=== PATIENT | male | born 1985 | race Caucasian/White ===

== ENCOUNTER 2022-03-02 17:04 | Emergency (ER) | payer OTHER, SELFPAY ==
[2022-03-02 17:12] VITALS: BP 115/80; BP 130/60; PULSE 59; RESP 18; TEMP 37; O2SAT 98; BMI 20.9
--- NOTE | 2022-03-02 17:22 | ED.GENADULT ---
HPI - General Adult General Chief complaint: ETOH/Substance Use Stated complaint: Substance Use Time Seen by Provider: 03/02/22 17:08 Source: patient and EMS History of Present Illness HPI narrative: Patient with history of opioid use disorder presents after being found unresponsive outside a convenience store. He woke on EMS arrival and did not require Narcan or other interventions. He has been awake for EMS but lethargic and nodding off intermittently. He responds to verbal stimuli so far. Initially his temperature reading was 94, but is 97 by arrival. Patient denies any complaints at this time. He reports recently getting out of care home and starting Subutex. His last Subutex was 3 days ago. He has used opioids since then. He is due to go back tomorrow to the [facility] where the Subutex is being prescribed for follow-up. He denies any recent medical issues. No fevers or chills or cough or shortness of breath. He states he was in care home for 6 months and was on Subutex throughout. Related Data Allergies Allergy/AdvReac Type Severity Reaction Status Date / Time No Known Allergies Allergy Verified 03/02/22 17:17 Review of Systems Constitutional: Comments: No fevers or chills Cardiovascular: Comments: No chest pain Respiratory: Comments: No shortness of breath or cough Gastrointestinal: Comments: Abdominal pain. No nausea vomiting diarrhea or constipation Musculoskeletal: Comments: No injuries Integumentary/Breasts: Comments: No rash Neurologic: Comments: No focal weakness Psychiatric: Comments: No depression or suicidal or homicidal ideation PMFSH Social History Social History Advance Directives: No Advance Directives Information Provided: No Physical Exam ED Vital Signs: Vital Signs - 24 hr 03/02/22 17:12 03/02/22 17:27 Temperature 98.6 F 97.4 F Pulse Rate 59 60 Respiratory Rate 18 14 Blood Pressure 130/60 123/78 Pulse Oximetry 98 98 Oxygen Delivery Method Room Air Room Air BMI result Body Mass Index 20.9 HENRI Other: Normocephalic atraumatic Eyes Other: 3 mm. Equal round reactive to light Resp Other: Clear and equal bilaterally. No respiratory distress. Cardio Other: Regular rate and rhythm without murmurs rubs or gallops GI Other: Soft nontender nondistended Skin Other: Warm pink and dry Neuro Other: No focal weakness Course Course Course Narrative: Patient states he has no oxygen at home. He states that this caused a rash in the past but would use it if he overdoses. He states that he does not need a new prescription at this time 17:58. Patient is awake alert and ambulating without difficulty. He is stable for discharge home. He is calling his sister for a ride Medical Decision Making Medical Decision Making MDM Narrative: Patient with opioid use disorder. Tonight with opioid ingestion without overdose requiring naloxone. At high risk of overdose. Declining substance use disorder evaluation and this time, but has good follow-up with primary care and the ability to restart his Subutex tomorrow. Will monitor until mental status is awake and alert. There is no evidence of acute helpful cause of his mental status, above and beyond a toxicologic cause. Discharge Plan Discharge Clinical Impression: Opioid use disorder Patient Disposition: Home, Self-Care Instructions: Opioid Use Disorder (ED) Additional Instructions: Follow-up with your PCP as scheduled tomorrow. Restart your Subutex when you are in moderate to severe withdrawal.
[2022-03-02 17:27] VITALS: BP 123/78; PULSE 60; RESP 14; TEMP 36.3; O2SAT 98
== END 2022-03-02 18:19 | disposition home or self-care (01) ==
PROVIDERS: Emergency Provider Emergency Medicine
DX: F11.19 Opioid abuse with unspecified opioid-induced disorder (principal); Z71.51 Drug abuse counseling and surveillance of drug abuser
CPT/HCPCS: 99282; 99283